=== PATIENT | male | born 1945 | race Caucasian/White ===

== ENCOUNTER → 2017-10-26 | Outpatient (CLI) | payer MEDICARE, MEDICAID ==
[~2017-10-26] MED LIST: ASPI-825 PO; CLOP75 PO; ESOM40CA PO; FURO20 PO; LEVO500 PO; LISI-622 PO; PANT40TA25 PO; ROSU10 PO
== END | disposition home or self-care (01) ==
LOC: RADPV 09:49
PROVIDERS: ATTEND Internal Medicine Cardiovascular Disease
DX: I08.0 Rheumatic disorders of both mitral and aortic valves (principal); I25.10 Atherosclerotic heart disease of native coronary artery without angina pectoris
CPT/HCPCS: 93306